=== PATIENT | female | born 1945 | race Caucasian/White ===

== ENCOUNTER → 2017-07-12 | Outpatient (CLI) | payer OTHER, MEDICARE | LOC: RAD 10:56 | DX: J98.11 Atelectasis (principal) ==

== ENCOUNTER → 2017-08-11 | Outpatient (CLI) | payer OTHER, MEDICARE | LOC: RAD 09:22 | DX: Z12.31 Encounter for screening mammogram for malignant neoplasm of breast (principal) ==

== ENCOUNTER → 2018-07-23 | Outpatient (CLI) | payer OTHER, MEDICARE | LOC: RAD 10:05 | DX: J98.4 Other disorders of lung (principal); Z88.8 Allergy status to other drugs, medicaments and biological substances; Z88.1 Allergy status to other antibiotic agents; Z91.041 Radiographic dye allergy status; Z88.2 Allergy status to sulfonamides ==

== ENCOUNTER → 2019-01-01 | Outpatient (CLI) | payer OTHER, MEDICARE | LOC: RAD 09:56 | DX: Z12.31 Encounter for screening mammogram for malignant neoplasm of breast (principal) ==

== ENCOUNTER → 2019-01-18 | Outpatient (CLI) | payer OTHER, MEDICARE ==
[2019-01-18 10:04] LABS: CREATININE 0.9 mg/dL (0.6-1.0)
== END ==
LOC: MRI 09:28
PROVIDERS: Family Medicine
DX: M48.061 Spinal stenosis, lumbar region without neurogenic claudication (principal); M51.36 Other intervertebral disc degeneration, lumbar region; M41.86 Other forms of scoliosis, lumbar region; M51.26 Other intervertebral disc displacement, lumbar region; M89.38 Hypertrophy of bone, other site

== ENCOUNTER → 2020-01-07 | Outpatient (CLI) | payer OTHER, MEDICARE | LOC: BC 08:53 | PROVIDERS: ATTEND Family Medicine | DX: Z12.31 Encounter for screening mammogram for malignant neoplasm of breast (principal) ==

== ENCOUNTER → 2021-01-07 | Outpatient (CLI) | payer OTHER, MEDICARE | LOC: BC 10:36 | PROVIDERS: ATTEND Family Medicine | DX: Z12.31 Encounter for screening mammogram for malignant neoplasm of breast (principal); N64.89 Other specified disorders of breast ==